=== PATIENT | male | born 1940 | race Caucasian/White ===

== ENCOUNTER → 2020-10-19 | Outpatient (CLI) | payer MEDICARE ==
[~2020-10-19] MED LIST: RT-ALBUTEROL SULF 2.5 MG/3 ML PRE-MIX VIAL INH ONE
--- NOTE | 2020-10-19 10:07 | Diagnostic Imaging Report ---
PROCEDURE: CT chest without contrast. TECHNIQUE: Multiple contiguous axial images were obtained through the chest without the use of intravenous contrast. Auto Exposure Controls were utilized during the CT exam to meet ALARA standards for radiation dose reduction. INDICATION: Respiratory distress. COMPARISON: There are no prior studies available for comparison. FINDINGS: The heart is borderline enlarged. There are extensive coronary artery calcifications evident. The aorta is not abnormally dilated. There is no obvious mediastinal or hilar adenopathy. A few small pretracheal nodes are noted. The thyroid gland is generally unremarkable. There are emphysematous changes involving both lungs. There is also a small partially calcified 5 mm nodule in the right upper lobe (image 34 series 2). This finding is most likely a benign process; however, along the periphery of the left lower lobe, there is an amorphous subpleural 1.2 x 1.2 cm density. This could be related to an inflammatory/infectious process, either chronic or acute. The possibility that this is neoplastic in nature should certainly be considered as well. If previous studies are available, they would be helpful for comparison. The images through the lung bases also show that there are two small 4 to 5 mm noncalcified nodules in the right lower lobe (series 2 image [id number]). These have a generally benign appearance. There is no sign of failure, pneumonia, or pleural effusion to suggest an acute abnormality. The sections through the upper abdomen show the liver is of lower density than usually seen and mildly enlarged. The low density appearance of the liver does suggest splenomegaly. The spleen is also prominent measuring 6.5 x 13.7 x 8.5 cm in maximum transverse AP and longitudinal measurements. There is no acute abnormality of the upper abdomen. The bone windows are unremarkable for a fracture or for a destructive lesion. IMPRESSION: 1. There is no evidence for an acute cardiopulmonary abnormality. 2. The amorphous density along the periphery of the left lung is of uncertain etiology. Whether this is due to an inflammatory/infectious process (either chronic or acute) or to neoplasm is not certain. If previous studies are available, they would be helpful for comparison. If there are no prior exams, then a short-term (3 month) followup CT chest exam should be obtained. 3. There are emphysematous changes involving both lungs. 4. There is borderline cardiomegaly and coronary artery disease. 5. The liver is mildly enlarged and the low-density appearance of the liver does suggest fatty metamorphosis. The spleen is also borderline enlarged. Dictated by: Dictated on workstation # [id number]
== END ==
LOC: RT 08:00
PROVIDERS: ATTEND Internal Medicine Critical Care Medicine
DX: Z13.83 Encounter for screening for respiratory disorder NEC (principal); J98.4 Other disorders of lung; J43.9 Emphysema, unspecified; R16.0 Hepatomegaly, not elsewhere classified
CPT/HCPCS: 71250; 94060; 94726; 94729

== ENCOUNTER 2021-01-28 10:34 | Outpatient (CLI) | payer MEDICARE ==
[~2021-01-28] VITALS: Ht 180.3 cm; Wt 106.8 kg
[2021-01-28 10:22] VITALS: BP 147/102
== END 2021-01-28 12:45 | disposition home or self-care (01) ==
LOC: INFUSION 10:34
PROVIDERS: ATTEND Student in an Organized Health Care Education/Training Program
DX: Z23 Encounter for immunization (principal); U07.1 COVID-19

== ENCOUNTER → 2021-02-23 | Outpatient (CLI) | payer MEDICARE ==
--- NOTE | 2021-02-23 08:48 | Diagnostic Imaging Report ---
PROCEDURE: CT chest without contrast. TECHNIQUE: Multiple contiguous axial images were obtained through the chest without the use of intravenous contrast. Auto Exposure Controls were utilized during the CT exam to meet ALARA standards for radiation dose reduction. DATE: February 23, 2021. COMPARISON: CT chest October 19, 2020. INDICATION: 80-year-old male, dyspnea. PROCEDURE: Axial noncontrasted CT images of the chest. Noncontrasted limits the evaluation of the mediastinum and vascular structures. FINDINGS: There are mild linear opacities in the right lower lobe, right middle lobe, and right upper lobe likely relating to mild scarring and/or atelectasis. There is mild scarring and/or atelectasis in the left upper lobe and left lower lobe. There is minimal right lower lobe and left lower lobe bronchiectasis. There are upper lobe predominant findings of centrilobular emphysema. There is no pneumothorax. There is no pleural effusion. The more central airways are patent. There is no identified pulmonary nodule or lung mass. The heart is not enlarged. There is no pericardial effusion. There are coronary artery calcifications and additional areas of atherosclerotic disease. There is no identified abnormally enlarged mediastinal or axillary lymph node meeting CT size criteria for adenopathy. The imaged portions of the upper abdomen are unremarkable. There is no identified acute bony abnormality. There is a benign T5 vertebral body hemangioma on sagittal image 86. IMPRESSION: 1. Mild upper lobe predominant findings of centrilobular emphysema. 2. Multifocal linear opacities in the lungs, compatible with mild scarring and/or atelectasis. Minimal right lower lobe and left lower lobe bronchiectasis. 3. No pulmonary nodule or lung mass. The previously noted focal area of consolidation in the left lower lobe on the prior CT chest on October 19, 2020 has resolved. Dictated by: Dictated on workstation # [id number]
== END ==
LOC: RAD 07:38
PROVIDERS: ATTEND Nurse Practitioner Family
DX: J43.2 Centrilobular emphysema (principal); R91.8 Other nonspecific abnormal finding of lung field
CPT/HCPCS: 71250